=== PATIENT | female | born 1955 | race Asian ===

== ENCOUNTER 2016-09-16 09:22 | Outpatient (CLI) | payer OTHER ==
[2016-09-16 11:29] LABS: POTASSIUM 4.4 mmol/L (3.6-5.2)
== END 2016-09-16 23:32 | disposition home or self-care (01) ==
LOC: LABW 09:22
PROVIDERS: Internal Medicine Nephrology
DX: I12.9 Hypertensive chronic kidney disease with stage 1 through stage 4 chronic kidney disease, or unspecified chronic kidney disease (principal); N18.3 Chronic kidney disease, stage 3 (moderate); N25.81 Secondary hyperparathyroidism of renal origin; M10.072 Idiopathic gout, left ankle and foot; R79.89 Other specified abnormal findings of blood chemistry
CPT/HCPCS: 36415; 80048; 80061; 82306; 82728; 83540; 83550; 83970; 84100; 84550; 85018; 85651

== ENCOUNTER 2016-11-15 12:21 | Outpatient (CLI) | payer OTHER | END 2016-11-16 00:39 | disposition home or self-care (01) | LOC: LABW 12:21 | DX: M10.071 Idiopathic gout, right ankle and foot (principal); M10.072 Idiopathic gout, left ankle and foot | CPT/HCPCS: 36415; 84550; 85651 ==

== ENCOUNTER 2017-03-16 10:19 | Outpatient (CLI) | payer OTHER | END 2017-03-16 19:26 | disposition home or self-care (01) | LOC: MAMMO 10:19 | DX: Z12.31 Encounter for screening mammogram for malignant neoplasm of breast (principal) | CPT/HCPCS: G0202-TC ==

== ENCOUNTER → 2017-07-29 11:28 | Outpatient (CLI) | payer OTHER | END | disposition home or self-care (01) | LOC: AMB 11:28 | DX: R51 Headache (principal) ==

== ENCOUNTER 2017-08-26 20:55 | Emergency (ER) | payer OTHER ==
[~2017-08-26] VITALS: Ht 170.2 cm; Wt 113.4 kg
[2017-08-26 22:08] LABS: PLATELET COUNT 289 K/uL (152-353)
[2017-08-26 22:19] LABS: SODIUM 138 mmol/L (136-145)
[2017-08-26 22:36] LABS: PARTIAL THROMBOPLASTIN TIME 31.9 SECONDS (24.5-33.6)
[2017-08-27 00:53] VITALS: BP 150/92; TEMP 97.8
== END 2017-08-27 01:00 | disposition home or self-care (01) ==
LOC: ED 20:55
DX: R07.89 Other chest pain (principal); I48.2 Chronic atrial fibrillation; R94.31 Abnormal electrocardiogram [ECG] [EKG]; K21.9 Gastro-esophageal reflux disease without esophagitis; M43.6 Torticollis
CPT/HCPCS: 36415; 80053; 82550; 84484; 85027; 85610; 85730; 93005; 99283

== ENCOUNTER 2017-10-12 14:00 | Outpatient (CLI) | payer OTHER | END 2017-10-12 19:39 | disposition home or self-care (01) | LOC: RAD 14:00 | DX: M25.561 Pain in right knee (principal); M25.552 Pain in left hip ==

== ENCOUNTER 2017-11-23 14:32 | Outpatient (CLI) | payer OTHER | END 2017-11-23 23:38 | disposition home or self-care (01) | LOC: RAD 14:32 | DX: M54.5 Low back pain (principal) ==

== ENCOUNTER 2018-03-25 09:37 | Outpatient (CLI) | payer OTHER | END 2018-03-25 19:17 | disposition home or self-care (01) | LOC: MAMMO 09:37 | DX: Z12.31 Encounter for screening mammogram for malignant neoplasm of breast (principal) ==

== ENCOUNTER 2018-08-13 13:13 | Outpatient (CLI) | payer OTHER | END 2018-08-13 22:18 | disposition home or self-care (01) | LOC: MRI 13:13 | DX: M50.11 Cervical disc disorder with radiculopathy, high cervical region (principal); M54.2 Cervicalgia ==

== ENCOUNTER 2019-04-05 09:52 | Outpatient (CLI) | payer OTHER | END 2019-04-05 20:58 | disposition home or self-care (01) | LOC: MAMMO 09:52 | DX: Z12.31 Encounter for screening mammogram for malignant neoplasm of breast (principal) ==

== ENCOUNTER 2019-04-21 09:17 | Outpatient (CLI) | payer OTHER | END 2019-04-21 22:34 | disposition home or self-care (01) | LOC: MAMMO 09:17 | DX: Z12.31 Encounter for screening mammogram for malignant neoplasm of breast (principal) ==

== ENCOUNTER 2019-09-15 09:38 | Outpatient (CLI) | payer OTHER | END 2019-09-15 23:04 | disposition home or self-care (01) | LOC: CT 09:38 | DX: R06.09 Other forms of dyspnea (principal) ==

== ENCOUNTER 2019-10-12 15:37 | Outpatient (CLI) | payer OTHER | END 2019-10-12 21:18 | disposition home or self-care (01) | LOC: CT 15:37 | DX: R06.09 Other forms of dyspnea (principal) ==

== ENCOUNTER 2020-01-24 16:27 | Outpatient (CLI) | payer OTHER | END 2020-01-24 19:14 | disposition home or self-care (01) | LOC: RAD 16:27 | DX: M10.09 Idiopathic gout, multiple sites (principal); M25.552 Pain in left hip; M54.5 Low back pain; R76.0 Raised antibody titer ==

== ENCOUNTER 2020-05-09 10:43 | Outpatient (CLI) | payer OTHER ==
[2020-05-09 11:07] LABS: PLATELET COUNT 262 K/uL (152-353)
[2020-05-09 11:27] LABS: POTASSIUM 4.1 mmol/L (3.6-5.2)
== END 2020-05-09 20:14 | disposition home or self-care (01) ==
LOC: LABW 10:43
PROVIDERS: Internal Medicine Nephrology
DX: I48.91 Unspecified atrial fibrillation (principal); R60.0 Localized edema; N31.8 Other neuromuscular dysfunction of bladder; N18.3 Chronic kidney disease, stage 3 (moderate); M10.9 Gout, unspecified; H20.9 Unspecified iridocyclitis; G47.33 Obstructive sleep apnea (adult) (pediatric); N39.41 Urge incontinence; D64.89 Other specified anemias; I12.9 Hypertensive chronic kidney disease with stage 1 through stage 4 chronic kidney disease, or unspecified chronic kidney disease
CPT/HCPCS: 36415; 80069; 81000; 82043; 82570; 82728; 83540; 83550; 85027

== ENCOUNTER 2020-07-03 13:34 | Emergency (ER) | payer OTHER ==
[~2020-07-03] VITALS: Ht 170.2 cm; Wt 117.9 kg
[2020-07-03 16:40] VITALS: BP 121/63; TEMP 98.1
== END 2020-07-03 16:40 | disposition home or self-care (01) ==
LOC: ED 13:34
DX: S39.012A Strain of muscle, fascia and tendon of lower back, initial encounter (principal); M16.0 Bilateral primary osteoarthritis of hip; V49.50XA Passenger injured in collision with unspecified motor vehicles in traffic accident, initial encounter; Y92.89 Other specified places as the place of occurrence of the external cause
CPT/HCPCS: 96372; 99283; J1885

== ENCOUNTER 2020-09-07 12:44 | Outpatient (CLI) | payer OTHER ==
[2020-09-07 13:26] LABS: PLATELET COUNT 286 K/uL (152-353)
== END 2020-09-07 23:59 | disposition home or self-care (01) ==
LOC: LABW 12:44
PROVIDERS: ATTEND Internal Medicine Nephrology
DX: M10.9 Gout, unspecified (principal); H20.9 Unspecified iridocyclitis; I48.91 Unspecified atrial fibrillation; N18.30 Chronic kidney disease, stage 3 unspecified; N31.8 Other neuromuscular dysfunction of bladder; R60.0 Localized edema; N39.41 Urge incontinence; M16.0 Bilateral primary osteoarthritis of hip; M17.0 Bilateral primary osteoarthritis of knee; Z79.899 Other long term (current) drug therapy; I12.9 Hypertensive chronic kidney disease with stage 1 through stage 4 chronic kidney disease, or unspecified chronic kidney disease
CPT/HCPCS: 36415; 80053; 81000; 82043; 82570; 83970; 84100; 84550; 85027; 85652; 86140

== ENCOUNTER 2021-02-04 12:55 | Outpatient (CLI) | payer OTHER ==
[2021-02-04 13:20] LABS: PLATELET COUNT 246 K/uL (152-353)
[2021-02-04 13:42] LABS: POTASSIUM 4.4 mmol/L (3.6-5.2)
== END 2021-02-04 20:03 | disposition home or self-care (01) ==
LOC: LABW 12:55
PROVIDERS: ATTEND Internal Medicine Nephrology
DX: M10.9 Gout, unspecified (principal); D64.89 Other specified anemias; I48.91 Unspecified atrial fibrillation; N18.32 Chronic kidney disease, stage 3b; R60.0 Localized edema; N39.41 Urge incontinence; R80.1 Persistent proteinuria, unspecified; I12.9 Hypertensive chronic kidney disease with stage 1 through stage 4 chronic kidney disease, or unspecified chronic kidney disease
CPT/HCPCS: 36415; 80069; 81000; 82043; 82570; 82728; 83540; 83550; 83970; 85027

== ENCOUNTER 2021-05-02 12:03 | Outpatient (CLI) | payer OTHER ==
[2021-05-02 12:39] LABS: PLATELET COUNT 248 K/uL (152-353)
[2021-05-02 13:32] LABS: POTASSIUM 4.2 mmol/L (3.6-5.2)
== END 2021-05-02 19:11 | disposition home or self-care (01) ==
LOC: LABW 12:03
PROVIDERS: ATTEND Internal Medicine Nephrology
DX: M10.9 Gout, unspecified (principal); D64.89 Other specified anemias; I48.91 Unspecified atrial fibrillation; N18.32 Chronic kidney disease, stage 3b; R60.0 Localized edema; N39.41 Urge incontinence; R80.1 Persistent proteinuria, unspecified; I12.9 Hypertensive chronic kidney disease with stage 1 through stage 4 chronic kidney disease, or unspecified chronic kidney disease
CPT/HCPCS: 36415; 80069; 81000; 82043; 82570; 84550; 85027

== ENCOUNTER 2021-07-24 14:54 | Outpatient (CLI) | payer OTHER | END 2021-07-24 20:31 | disposition home or self-care (01) | LOC: MAMMO 14:54 | PROVIDERS: ATTEND Internal Medicine | DX: Z12.31 Encounter for screening mammogram for malignant neoplasm of breast (principal) ==

== ENCOUNTER 2022-01-10 12:13 | Emergency (ER) | payer OTHER ==
[~2022-01-10] VITALS: Ht 170.2 cm; Wt 112.9 kg
[2022-01-10] MEDS ORDERED: CLINDAMYCIN HY300 MG PO (16:03)
[2022-01-10 16:20] VITALS: BP 140/82; TEMP 98.2
== END 2022-01-10 16:20 | disposition home or self-care (01) ==
LOC: ED 12:13
DX: K02.9 Dental caries, unspecified (principal); M27.3 Alveolitis of jaws
CPT/HCPCS: 99281

== ENCOUNTER 2022-05-29 22:49 | Emergency (ER) | payer OTHER ==
[~2022-05-29] VITALS: Ht 170.2 cm; Wt 117.9 kg
[~2022-05-29 22:49] MED LIST: CLINDAMYCIN HY300 MG PO
[2022-05-29 23:37] LABS: PLATELET COUNT 317 K/uL (152-353)
[2022-05-29 23:47] LABS: POTASSIUM 4.1 mmol/L (3.6-5.2)
[2022-05-30] MEDS ORDERED: ALBU90AE13 INH (00:04)
[2022-05-30] MEDS ORDERED: TAMIFLU75 MG PO (00:04)
[2022-05-30 01:25] VITALS: BP 143/85; TEMP 100.2
== END 2022-05-30 01:25 | disposition home or self-care (01) ==
LOC: ED 22:49
PROVIDERS: Emergency Medicine
DX: J10.1 Influenza due to other identified influenza virus with other respiratory manifestations (principal); J45.909 Unspecified asthma, uncomplicated; N18.9 Chronic kidney disease, unspecified; I48.91 Unspecified atrial fibrillation; Z79.01 Long term (current) use of anticoagulants; Z96.642 Presence of left artificial hip joint; Z20.822 Contact with and (suspected) exposure to COVID-19; F17.210 Nicotine dependence, cigarettes, uncomplicated
CPT/HCPCS: 36415; 80048; 85027; 87502; 87635; 94664; 96365; 99284; U0003

== ENCOUNTER 2022-08-01 13:31 | Outpatient (CLI) | payer OTHER ==
[~2022-08-01 13:31] MED LIST changes: +ALBU90AE13 INH; +TAMIFLU75 MG PO
== END 2022-08-01 19:05 | disposition home or self-care (01) ==
LOC: MAMMO 13:31
PROVIDERS: ATTEND Internal Medicine
DX: Z12.31 Encounter for screening mammogram for malignant neoplasm of breast (principal)

== ENCOUNTER 2022-09-19 13:23 | Outpatient (CLI) | payer OTHER ==
[2022-09-19 14:36] LABS: PLATELET COUNT 208 K/uL (152-353)
[2022-09-19 14:46] LABS: POTASSIUM 4.4 mmol/L (3.6-5.2)
== END 2022-09-19 19:33 | disposition home or self-care (01) ==
LOC: LABW 13:23
PROVIDERS: ATTEND Internal Medicine Nephrology
DX: M10.9 Gout, unspecified (principal); D64.89 Other specified anemias; I12.9 Hypertensive chronic kidney disease with stage 1 through stage 4 chronic kidney disease, or unspecified chronic kidney disease; I48.91 Unspecified atrial fibrillation; N18.32 Chronic kidney disease, stage 3b; N31.8 Other neuromuscular dysfunction of bladder; R60.0 Localized edema; R73.03 Prediabetes; R80.1 Persistent proteinuria, unspecified
CPT/HCPCS: 36415; 80069; 81002; 82043; 85027

== ENCOUNTER 2022-12-30 13:45 | Outpatient (CLI) | payer OTHER ==
[2022-12-30 14:13] LABS: PLATELET COUNT 237 K/uL (152-353)
[2022-12-30 15:34] LABS: POTASSIUM 4.3 mmol/L (3.6-5.2)
== END 2022-12-30 19:02 | disposition home or self-care (01) ==
LOC: LABW 13:45
PROVIDERS: ATTEND Internal Medicine Nephrology
DX: M10.9 Gout, unspecified (principal); D64.89 Other specified anemias; I12.9 Hypertensive chronic kidney disease with stage 1 through stage 4 chronic kidney disease, or unspecified chronic kidney disease; I48.91 Unspecified atrial fibrillation; N18.32 Chronic kidney disease, stage 3b; R60.0 Localized edema; R73.03 Prediabetes; R80.1 Persistent proteinuria, unspecified
CPT/HCPCS: 36415; 80069; 81002; 82043; 82570; 83970; 85027